=== PATIENT | male | born 1965 | race Caucasian/White ===

== ENCOUNTER 2020-09-15 23:56 | Emergency (ER) | payer OTHER ==
[~2020-09-15] VITALS: Ht 170.2 cm; Wt 61.2 kg
[~2020-09-15 23:56] MED LIST: AVAPRO300 MG; AVAPRO300 MG PO
[2020-09-16] MEDS ORDERED: COZAAR100 MG (00:08)
[2020-09-16] MEDS ORDERED: VISTARIL25 MG PO (02:08)
[2020-09-16] MEDS ORDERED: AMLODIPINE BESYL5 MG PO (02:08)
== END 2020-09-16 02:20 | disposition home or self-care (01) ==
LOC: ER 23:56
DX: I10 Essential (primary) hypertension (principal); F06.4 Anxiety disorder due to known physiological condition

== ENCOUNTER → 2020-11-27 23:39 | Outpatient (CLI) | payer OTHER ==
[~2020-11-27 23:39] MED LIST changes: +AMLODIPINE BESYL5 MG PO; +COZAAR100 MG; +VISTARIL25 MG PO
== END | disposition home or self-care (01) ==
LOC: PPH VACUNA 23:39
DX: Z23 Encounter for immunization (principal)